=== PATIENT | female | born 1985 ===

== ENCOUNTER 2019-06-23 15:01 | Emergency (ER) | payer OTHER ==
[~2019-06-23 15:01] MED LIST: BUPR-133 PO; CETI10CA8 PO; DULO30CA35 PO; EPIN0.1516 IM; ESCI5TAB10 PO; ETON1VAG7 VG; FLUT16SP19 NS; MONT10TA PO
--- NOTE | 2019-06-23 15:04 | ER Report ---
History and Physical Time Seen By MD: 15:00 HPI/ROS CHIEF COMPLAINT: right lower quadrant pain and nausea HISTORY OF PRESENT ILLNESS: Patient is a 33 yo female presents with RLQ pain that began yesterday after PT appointment with pelvic manipulation/treatment for endometriosis. She notes that the pain has been constant and seems to worsen wit h movement or stretching, and now radiates towards the umbilical region. Her last menstrual cycle started on 06/18/19. She denies h/o of abdominal surgeries. She last ate about 3.5 hours ago and had some fluids when she arrived to the ED. Her last BM was about 2 hours ago, denies any melena/hematochezia. She admits to nausea, but no vomiting or diarrhea. REVIEW OF SYSTEMS: Constitutional: No fever, no chills. Eyes: No discharge. ENT: No sore throat. Cardiovascular: No chest pain, no palpitations. Respiratory: No cough, no shortness of breath. Gastrointestinal: as in HPI Genitourinary: No hematuria, no dysuria Musculoskeletal: No back pain. Skin: No rashes. Neurological: No headache. Allergies: Coded Allergies: No Known Drug Allergies (Unverified , 06/23/19) Home Meds Reported Medications Trazodone Hcl (TRAZODONE HCL) 50 Mg Tablet, 50 MG PO QHS 06/23/19 Cetirizine Hcl (ZYRTEC) 10 Mg Capsule, 10 MG PO QDAY, CAPSULE 12/04/18 Epinephrine (EPIPEN JR 2-ZACHARY) 0.15 Mg/0.3 Ml Pen.injctr, 0.15 MG IM 12/04/18 Duloxetine Hcl (CYMBALTA) 30 Mg Capsule.dr, 10 MG PO QDAY, #5 CAP 12/04/18 Fluticasone Prop 50 Mcg Ns (FLONASE 50 MCG NS) 16 Gm [place].susp, 1 SPRAY NS BID, BOT 12/04/18 Montelukast Sodium (SINGULAIR) 10 Mg Tablet, 1 TAB PO QDAY, TAB 12/04/18 Discontinued Reported Medications Etonogestrel/Ethinyl Estradiol (NUVARING VAGINAL RING) 1 Each Vag.ring, 1 EACH VG, VAG.RING 02/02/19 Escitalopram Oxalate (LEXAPRO) 5 Mg Tablet, 5 MG PO QDAY 12/04/18 Bupropion Hcl (WELLBUTRIN SR) 100 Mg Tablet.er, 100 MG PO QDAY, TAB 12/04/18 Constitutional Vital Sign - Last 24 Hours 06/23/19 06/23/19 06/23/19 06/23/19 15:07 15:12 15:30 15:31 Temp 98.3 Pulse 66 73 Resp 13 B/P (MAP) 119/71 (87) 119/71 114/79 (91) Pulse Ox 96 95 O2 Delivery Room Air 06/23/19 06/23/19 06/23/19 06/23/19 16:00 16:01 16:30 16:31 Pulse 62 69 B/P (MAP) 121/84 (96) 111/76 (88) Pulse Ox 93 95 Physical Exam General Appearance: The patient is alert, has no immediate need for airway protection and no signs of toxicity. Appears uncomfortable Eyes: Pupils equal and round no pallor or injection. ENT, Mouth: Mucous membranes are moist. Respiratory: There are no retractions, lungs are clear to auscultation. Cardiovascular: Regular rate and rhythm. Gastrointestinal: Abdomen is soft and non distended, bowel sounds normal. Tender to palpation over the RLQ and umbilical region, with positive McBurney's and Rovsing sign. Neurological: No focal neurological deficits Skin: Warm and dry, no rashes. Musculoskeletal: Neck is supple non tender. Extremities are nontender, nonswollen and have full range of motion. DIFFERENTIAL DIAGNOSIS: After history and physical exam differential diagnosis was considered for appendicitis, endometriosis, ovarian torsion, ovarian ruptured cyst, cholecystitis, pancreatitis, gastritis, UTI. Medical Decision Making Data Points Result Diagram: 06/23/19 1516 06/23/19 1516 Laboratory Hematology Test 06/23/19 15:16 White Blood Count 5.1 k/uL (4.5-11.0) Red Blood Count 4.39 M/uL (4.17-5.56) Hemoglobin 12.7 g/dL (12.0-16.0) Hematocrit 36.6 % (34.0-47.0) Mean Corpuscular Volume 83.4 fL (80.0-96.0) Mean Corpuscular Hemoglobin 28.9 pg (26.0-33.0) Mean Corpuscular Hemoglobin Concent 34.7 g/dL (32.0-36.0) Red Cell Distribution Width 13.6 % (11.5-14.5) Platelet Count 214 K/uL (150-450) Mean Platelet Volume 8.4 fL (7.2-11.1) Neutrophils (%) (Auto) 58.5 % (39.4-72.5) Lymphocytes (%) (Auto) 32.1 % (17.6-49.6) Monocytes (%) (Auto) 5.8 % (4.1-12.4) Eosinophils (%) (Auto) 2.0 % (0.4-6.7) Basophils (%) (Auto) 1.6 % (0.3-1.4) H Nucleated RBC Relative Count (auto) 0.1 /100WBC Neutrophils # (Auto) 3.0 K/uL (2.0-7.4) Lymphocytes # (Auto) 1.6 K/uL (1.3-3.6) Monocytes # (Auto) 0.3 K/uL (0.3-1.0) Eosinophils # (Auto) 0.1 K/uL (0.0-0.5) Basophils # (Auto) 0.1 K/uL (0.0-0.1) Nucleated RBC Absolute Count (auto) 0.00 K/uL Chemistry Test 06/23/19 15:16 Sodium Level 136 mmol/L (137-145) Potassium Level 3.7 mmol/L (3.5-5.0) Chloride Level 104 mmol/L (98-107) Carbon Dioxide Level 24 mmol/L (22-31) Blood Urea Nitrogen 12 mg/dl (7-18) Creatinine 0.70 mg/dl (0.52-1.04) Glomerular Filtration Rate Calc > 60.0 Random Glucose 105 mg/dl (75-110) Calcium Level 9.0 mg/dl (8.4-10.2) Total Bilirubin 0.4 mg/dl (0.2-1.3) Aspartate Amino Transf (AST/SGOT) 27 U/L (0-35) Alanine Aminotransferase (ALT/SGPT) 28 U/L (0-56) Alkaline Phosphatase 62 U/L (0-126) C-Reactive Protein < 0.5 mg/dl (<1.0) Total Protein 7.7 g/dl (6.3-8.2) Albumin 4.2 g/dl (3.5-5.0) Lipase 194 U/L (23-300) Human Chorionic Gonadotropin, Qual Negative (NEGATIVE) Urinalysis Test 06/23/19 15:05 Urine Color Yellow Urine Clarity Clear Urine pH 6.0 pH (4.8-9.5) Urine Specific [place] 1.027 Urine Protein Negative mg/dL (NEGATIVE) Urine Glucose (UA) Negative mg/dL (NEGATIVE) Urine Ketones Negative mg/dL (NEGATIVE) Urine Blood Negative (NEGATIVE) Urine Nitrite Negative (NEGATIVE) Urine Bilirubin Negative (NEGATIVE) Urine Urobilinogen Negative mg/dL (0.2-1.9) Urine Leukocyte Esterase Negative (NEGATIVE) Urine RBC 1 /HPF (0-2/HPF) Urine WBC <1 /HPF (0-5/HPF) Urine Squamous Epithelial Cells Moderate /LPF (</=FEW) Urine Bacteria Few /HPF (NONE-FEW) Urine Mucus Few /HPF (NONE-FEW) EKG/Imaging Imaging FACILITY: [facility] PATIENT NAME: Noemy Perea : 1985 MR: [id number] V: [id number] EXAM DATE: ORDERING PHYSICIAN: JC ARLOS WHITE TECHNOLOGIST: Location: [facility] [place] Patient: Noemy Perea : 1985 Visit/Account:[id number] Date of Sevice: 06/23/2019 EXAMINATION: CT abdomen and pelvis with contrast COMPARISON: None. HISTORY: Right lower quadrant pain. PROCEDURE: Multiplanar contrast enhanced CT of the abdomen and pelvis with 75 mL intravenous Isovue 370. One of the following dose optimization techniques was utilized in the performance of this exam: Automated exposure control; adjustment of the mA and/or kV according to the patient's size; or use of an iterative reconstruction technique. Specific details can be referenced in the facility's radiology CT exam operational policy. FINDINGS: Visualized thorax: Negative. Liver: Negative. Gallbladder and biliary system: Negative Spleen: Negative. Pancreas: Negative. Adrenal glands: Negative. Kidneys and bladder: Negative. Vessels: Negative. Bowel and mesentery: Negative. Unremarkable appendix. Pelvic organs: Negative. Lymph nodes: No adenopathy. Free air/free fluid: None. Musculoskeletal: Negative. IMPRESSION: Negative CT abdomen and pelvis. Report Dictated By: Gerardo Kern MD at 06/23/2019 4:39 PM Report E-Signed By: Gerardo Kern MD at 06/23/2019 4:47 PM [id number] ED Course/Re-evaluation ED Course 15:42 We ordered labs and CT of the abdomen, symptoms suspicious for appendectomy but also could be ovarian etiology. Patient received Zofran for nausea. Patient is a 33-year-old female here with complaints of right lower quadrant abdominal pain concerning for appendicitis. There is no leukocytosis, CRP was negative. was negative. Urinalysis was noninfectious. CT imaging was negative for appendicitis. Recommend close PCP follow-up. Return precautions provided. Decision to Disposition Date: Jun 23, 2019 Decision to Disposition Time: 17:07 Depart Departure Latest Vital Signs Vital Signs Date Time Temp Pulse Resp B/P (MAP) Pulse Ox O2 Delivery O2 Flow Rate FiO2 06/23/19 16:31 69 95 06/23/19 16:30 111/76 (88) 06/23/19 15:12 98.3 13 Room Air Impression: Primary Impression: Appendicitis Condition: Improved Disposition: HOME OR SELF-CARE Referrals: DORIS BARBER (PCP) New Scripts Ondansetron 4 Mg Odt (ONDANSETRON 4 MG ODT) 4 Mg Tab.rapdis 4 MG PO ONCE, #20 TAB Prov: J CARLOS WHITE DO 06/23/19 Patient Instructions: Acute Abdominal Pain (DC) Additional Instructions: Please drink plenty of water. Please observe a bland diet for the next several days. Please follow-up with her primary care provider in the next 24-48 hours for repeat evaluation. Please return promptly if you develop worsening pain, inability to keep down food or fluids, blood in the urine or stools, fevers or chills. He may take ondansetron 1 tablet every 4-6 hours as needed for nausea and vomiting. J CARLOS WHITE DO Jun 23, 2019 15:04
[2019-06-23] MEDS ORDERED: NS(*) 0.9% 1000 ML BAG 1,000 ML IV ONE (15:16)
[2019-06-23] MEDS ORDERED: TRAZ50TA52 PO (15:17)
[2019-06-23] MEDS ORDERED: ONDANSETRON 4 MG/2 ML VIAL IVP ONE (15:20)
[2019-06-23] MEDS ORDERED: fentaNYL CITR 100 MCG/2 ML AMP IVP ONE (15:20)
[2019-06-23 15:35] LABS: PLATELET COUNT, AUTOMATED 214 K/uL (150-450)
[2019-06-23] MEDS ORDERED: IOPAMIDOL 76% 100 ML INFUS BTL 100 ML ONE (15:36)
--- NOTE | 2019-06-23 16:55 | RADIOLOGY IMAGING REPORT ---
FACILITY: [facility] PATIENT NAME: Noemy Perea : 1985 MR: [id number] V: [id number] EXAM DATE: ORDERING PHYSICIAN: J CARLOS WHITE TECHNOLOGIST: Location: [facility] - [place], [place] Patient: Noemy Perea : 1985 Visit/Account:[id number] Date of Sevice: 06/23/2019 EXAMINATION: CT abdomen and pelvis with contrast COMPARISON: None. HISTORY: Right lower quadrant pain. PROCEDURE: Multiplanar contrast enhanced CT of the abdomen and pelvis with 75 mL intravenous Isovue 3 70. One of the following dose optimization techniques was utilized in the performance of this exam: A utomated exposure control; adjustment of the mA and/or kV according to the patient's size; or use of an iterative reconstruction technique. Specific details can be referenced in the facility's radiolo gy CT exam operational policy. FINDINGS: Visualized thorax: Negative. Liver: Negative. Gallbladder and biliary system: Negative Spleen: Negative. Pancreas: Negative. Adrenal glands: Negative. Kidneys and bladder: Negative. Vessels: Negative. Bowel and mesentery: Negative. Unremarkable appendix. Pelvic organs: Negative. Lymph nodes: No adenopathy. Free air/free fluid: None. Musculoskeletal: Negative. IMPRESSION: Negative CT abdomen and pelvis. Report Dictated By: Gerardo Kern MD at 06/23/2019 4:39 PM Report E-Signed By: Gerardo Kern MD at 06/23/2019 4:47 PM [id number]
[2019-06-23 17:00] VITALS: BP 114/80
[2019-06-23] MEDS ORDERED: ONDA4TAB9 PO (17:09)
== END 2019-06-23 17:27 | disposition home or self-care (01) ==
LOC: ER 15:15
DX: K37 Unspecified appendicitis (principal)
CPT/HCPCS: 74177; 81001; 83690; 84703; 85025; 86140; 96361; 96374; 96375; 99284; J2405; J3010; J7030; Q9967; 82040; 82247; 82310; 82374; 82435; 82565; 82947; 84075; 84132; 84155; 84295; 84450; 84460; 84520